=== PATIENT | female | born 1985 | race Caucasian/White ===

== ENCOUNTER 2017-11-02 19:34 | Emergency (ER) | payer MEDICAID, OTHER ==
[2017-11-02 19:49] VITALS: BP 109/68
--- NOTE | 2017-11-02 20:14 | ER Document Report ---
HPI - HPI Patient complains to provider of: Punctured left hand Onset: This evening - At 1915 Onset/Duration: Sudden Pain Level: 4 Context: 31-year-old normally healthy female accidentally punctured her left hand with a Saeed screwdriver in the webspace between index and thumb. Is very painful. Tetanus is not current. Associated Symptoms: None Exacerbated by: Movement Relieved by: Denies Similar symptoms previously: No Recently seen / treated by doctor: No - ROS ROS below otherwise negative: Yes Systems Reviewed and Negative: Yes All other systems reviewed and negative Past Medical History - General Information source: Patient - Social History Smoking Status: Never Smoker Frequency of alcohol use: None Drug Abuse: None Lives with: Family Family History: Reviewed & Not Pertinent - Medical History Medical History: Negative Surgical Hx: Negative Vertical Provider Document - CONSTITUTIONAL Agree With Documented VS: Yes - INFECTION CONTROL TRAVEL OUTSIDE OF THE [place] IN LAST 30 DAYS: No - HEENT HEENT: Normocephalic - MUSCULOSKELETAL/EXTREMETIES Musculoskeletal/Extremeties: MAEW, FROM, Tender - Star-shaped 3 mm puncture in the webspace between index and thumb, closer to the second metacarpal. There is surrounding bruising., Eccymosis - NEURO Level of Consciousness: Awake, Alert Motor/Sensory: No Motor Deficit, No Sensory Deficit - DERM Integumentary: Laceration - Puncture wound see above Course - Re-evaluation Re-evalutation: 11/02/17 20:58 Prelim x-ray is negative. - Vital Signs Vital signs: Temp Pulse Resp BP Pulse Ox 98.2 F 77 16 109/68 100 11/02/17 19:48 11/02/17 19:48 11/02/17 19:48 11/02/17 19:48 11/02/17 19:48 Discharge - Discharge Clinical Impression: Puncture wound of left hand Qualifiers: Encounter type: initial encounter Foreign body presence: without foreign body Qualified Code(s): S61.432A - Puncture wound without foreign body of left hand, initial encounter Condition: Good Disposition: HOME, SELF-CARE Instructions: Cephalexin ([facility]), Elevation & Warmth ([facility]), Ibuprofen (General) ( [facility]), Oral Narcotic Medication ([facility]), Puncture Wound ([facility]) Additional Instructions: Elevate the hand Wash with soap and water daily Bacitracin and nonstick dressing Warm compress Cephalexin to prevent infection Copy of negative x-ray report given to you Return to the emergency room for any signs of infection which is fever swelling increased pain pus Schedule appointment with Dr. alarcon orthopedic hand specialist for this week Prescriptions: Cephalexin Monohydrate [Keflex 500 mg Capsule] 500 mg PO QID #28 capsule Forms: Return to Work Referrals: MIREYA ZAPATA DO [ACTIVE STAFF] - Follow up in 3-5 days
[2017-11-02] MEDS ORDERED: IBUPROFEN 600 MG TABLET PO ONE (20:31)
[2017-11-02] MEDS ORDERED: ACETAMINOPHEN 325 MG TABLET PO ONE (20:31)
[2017-11-02] MEDS ORDERED: DIPH/PERTUSS(ACELL)/TETANUS VAC/PF 0.5 ML SYR (>=10YO) IM ONE (20:32)
[2017-11-02] MEDS ORDERED: HYDROCODONE/ACETAMINOPHEN 5-325 MG (6 TAB/ER DISP) PO PRN (20:44)
[2017-11-02] MEDS ORDERED: CEPHALEXIN 500 MG CAPSULE PO ONE (20:44)
--- NOTE | 2017-11-02 21:03 | RADIOLOGY REPORT (SQ) ---
EXAM DESCRIPTION: HAND LEFT 3 VIEWS COMPLETED DATE/TIME: 11/02/2017 8:46 pm REASON FOR STUDY: Puncture wound left hand COMPARISON: None. EXAM PARAMETERS: NUMBER OF VIEWS: Three views. TECHNIQUE: AP, lateral and oblique radiographic images acquired of the left hand. LIMITATIONS: None. FINDINGS: MINERALIZATION: Normal. BONES: No acute fracture or dislocation. No worrisome bone lesions. JOINTS: No effusions. SOFT TISSUES: No soft tissue swelling. No foreign body. OTHER: No other significant finding. IMPRESSION: NEGATIVE STUDY OF THE LEFT HAND. NO RADIOGRAPHIC EVIDENCE OF ACUTE INJURY. TECHNICAL DOCUMENTATION: JOB ID: [id number] [employer]- All Rights Reserved Reading location - IP/workstation name: [email or web address]
== END 2017-11-02 21:12 | disposition home or self-care (01) ==
LOC: ER 19:34
DX: S61.432A Puncture wound without foreign body of left hand, initial encounter (principal); W27.0XXA Contact with workbench tool, initial encounter
CPT/HCPCS: 90471; 90715; 99283